=== PATIENT | male | born 1980 | race Caucasian/White ===

== ENCOUNTER 2017-03-25 20:16 | Emergency (ER) | payer BC ==
[~2017-03-25] VITALS: Ht 182.9 cm; Wt 95.3 kg
[2017-03-25] MEDS ORDERED: AMLODIPINE BESYL5 MG ORAL (20:32)
[2017-03-25] MEDS ORDERED: RAMIPRIL5 MG ORAL (20:32)
[2017-03-25] MEDS ORDERED: BUPROPION XL300 MG ORAL (20:32)
[2017-03-25 20:40] VITALS: BP 145/94
[2017-03-25] MEDS ORDERED: Norco 5mg/325mg tab ORAL ONE (20:45)
[2017-03-25] MEDS ORDERED: ACETAMINOPHEN-1 EAC1 ORAL (21:24)
[2017-03-25] MEDS ORDERED: SILVADENE20 GM TP (21:29)
[2017-03-25 21:30] VITALS: BP 135/89
[2017-03-25 21:35] VITALS: BP 135/89
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
== END 2017-03-25 21:35 | disposition home or self-care (01) ==
LOC: EMR 21:01
DX: T25.022A Burn of unspecified degree of left foot, initial encounter (principal); X10.2XXA Contact with fats and cooking oils, initial encounter; Y93.9 Activity, unspecified; Y92.9 Unspecified place or not applicable; I10 Essential (primary) hypertension